=== PATIENT | female | born 1930 | race Caucasian/White ===

== ENCOUNTER → 2016-09-20 | Outpatient (CLI) | payer OTHER, BC ==
[~2016-09-20] VITALS: Ht 162.6 cm; Wt 95.0 kg
[~2016-09-20] MED LIST: ASPIR 8181 M1 PO; CARBAMAZEPINE100 M1 PO; CENTRUM SILVER1 EAC4 PO; COQ-10100 MG PO; GLIPIZIDE ER5 MG PO; HYDROCHLOROTHIA25 M2 PO; LISINOPRIL5 MG PO; LOPRESSOR50 PO; LUTEIN20 MG PO; MIRALAX17 GM PO; MOBIC7.5 MG PO; TRAMADOL 50 MG50 MG PO
--- NOTE | ~2016-09-20 | HPC ---
[facility] [place] [address] PAIN MANAGEMENT CONSULTATION Name: DOMINIQUE DENNIS Room #: REG ANA Richardson#: [id number] Admission: 09/20/16 Attend Phys: Nikolay Morales DO Discharge: Date of : 29 Report #: [id number] THIS REPORT FOR: //name// CC: Brittni Morales HISTORY OF PRESENT ILLNESS: The patient is very pleasant 86-year-old female seen in consultation at the request of Dr. Crow for evaluation of pain low back, radiating into the right leg. The patient notes she had fallen in April, falling backward, striking her low back, tail bone. She developed significant pain in low back, radiating to the right leg within about 24 hours. She was found to have blood clots in her leg, was placed on Xarelto though she has been off of this now for greater than a week. Pain has radiated into the right leg. She states it is exacerbated with any and all movements, sitting, walking or lying. She states "I can find no comfortable position." She has subjective weakness and paresthesia in the right leg. Fortunately, she denied saddle anesthesia or bowel or bladder continence. Notes pain, rates anywhere from 8-10 on a 0-10 visual analog scale; describes intermittent periodic, aching, gnawing pain. REVIEW OF SYSTEMS: Complete review of systems attached to chart was gone over with the patient. She is , seen in the company of her who is supportive as well as their daughter who is frequently present when I see her , Mr. Dennis who is also patient in the pain clinic. The patient does not smoke or drink alcohol to excess. History of non-insulin dependent diabetes, treated with glipizide, relatively poor control with hemoglobin A1c last being around 7. Hypertension, treated with metoprolol, lisinopril, and hydrochlorothiazide. Has had some headaches subsequent to the fall, sounds like she may have had a post-concussion syndrome. She was on carbamazepine for a very short, but this caused some cognitive impairment. Currently, she is taking tramadol for pain. The patient is retired. Her pain impact score is quite high, averaging about 8.2 for all indices queried. PHYSICAL EXAMINATION: VITAL SIGNS: Reveals a 5 feet 4 inches, 95 kilogram female, BMI is 35.9 kilograms per meter squared. Blood pressure is 136/76, pulse 66, respirations 20. NEUROLOGIC: Cranial nerves 2-12 are grossly intact. HEENT: Pupils equal and reactive to light and accommodation. Extraocular muscles are intact. Thyroid is modestly enlarged. HEART: Regular and rhythmical. [facility] [address] [place] [address] PAIN MANAGEMENT CONSULTATION Name: DOMINIQUE DENNIS Room #: REG ANA Richardson#: [id number] Admission: 09/20/16 Attend Phys: Nikolay Morales DO Discharge: Date of : 29 Report #: [id number] LUNGS: Generally clear. MUSCULOSKELETAL: Upper extremity strength is preserved. Does have a little thoracic kyphosis. Moderately endomorphic build. Rises from chair using armrests. Has an antalgic, almost ataxic, very short stepped gait. Lumbar flexion is limited to 50 degrees. Tender in the low back from L4 down. No discrete trigger points are noted. Lower extremity strength does show diminished strength to the right leg, the hip flexion, lower extremity extension. Strength is about 3/5 subjectively left leg, objectively little bit stronger about 4/5. Straight leg raise is positive on the right at 30 degrees. Patellar reflexes absent on the right, 1/4 on the left. Achilles reflex 1/4 and symmetric. The patient does not have any diagnostic studies available at this time, though by reports a CT scan of the pelvis at the time of the initial injury in April was unremarkable for osseous pathology, i.e. fracture. ASSESSMENT: Symptomatic lumbar radiculopathy secondary to spinal stenosis, recent fall (April) with appears to be some post-concussive headache. Incidentally noted by a family member that the patient has been showing some increasing depression and lack of "energy," some component of malaise. RECOMMENDATIONS: We will start the patient on meloxicam 7.5 mg 1 a day. Epidural injection under fluoroscopy today at L5-S1. Follow up in 1 month to evaluate efficacy. If she still has ongoing pain, may consider addition of Cymbalta 30 mg to help with pain as well as component of depression. Thank you for allowing me to participate in the patient's care, I will keep you abreast of her progress. PROCEDURE NOTE: Lumbar epidural injection under fluoroscopy. After both written and informed consent to include risk of spinal cord damage, increased pain, weakness and dural puncture, the patient was taken to the fluoroscopy suite, placed in the prone position. After sterile prep and drape, a skin wheal with lidocaine was raised. A 22-gauge epidural Tuohy needle was inserted in the midline at L5-S1 with good loss to resistance. Negative aspiration for cerebrospinal fluid or blood was noted. Then 1 mL of Omnipaque under biplanar fluoroscopy showed good spread within the epidural space. This was followed with 80 mg of triamcinolone plus 1 mL of 1.5% preservative-free Xylocaine, 0.5 mL Xylocaine was then injected to flush the needle; it was removed. The patient was monitored for an appropriate period of time and discharged in good and stable condition. By: [id number] Nikolay Morales DO /nt
[2016-09-20 14:17] VITALS: BP 136/76
== END ==
LOC: PAIN 07:35
DX: M54.16 Radiculopathy, lumbar region (principal); M48.06 Spinal stenosis, lumbar region

== ENCOUNTER → 2016-11-08 | Outpatient (CLI) | payer OTHER, BC ==
[~2016-11-08] VITALS: Ht 165.1 cm; Wt 93.9 kg
[~2016-11-08] MED LIST changes: +CYMBALTA30 MG PO
--- NOTE | ~2016-11-08 | HPC ---
[facility] [place] [address] PAIN MANAGEMENT CONSULTATION Name: DOMINIQUE SALINAS Room #: REG CHARLEYRadha Richardson#: [id number] Admission: 11/08/16 Attend Phys: Nikolay Morales DO Discharge: Date of : 29 Report #: [id number] THIS REPORT FOR: //name// CC: Mamejoanie Morales The patient is a very pleasant 86-year-old female seen in consultation 09/20/2016, diagnosed with symptomatic lumbar radiculopathy secondary to spinal stenosis, history of post-concussive headaches, component of depression and neuropathic pain. The patient was given a midline injection at L5-S1 at that time. Returns to pain clinic today noting the injection afforded incremental relief, perhaps 50%. She does, however, still has ongoing pain, right lower extremity. She is moderately tender in the calf, though no true Homans signs noted. She does have light touch allodynia and hyperpathia. Burning sensation in the right lower extremity. This is the leg that had prior had a blood clot. Since we saw her last, she had another fall. She was walking with her walker and the walker malfunctioned. She notes no significant change following the fall. She notes axial back pain is 5-6/10 and right lower extremity pain is 6/10. She notes that she uses a walker. She significantly has improvement of her functional status. She does have classic spinal stenosis, we often see with reversal of the lordotic curvature, i.e. using a walker and/or walking with a shopping cart, patients typically do a better improvement of their spinal stenosis. PHYSICAL EXAMINATION: Shows an 86-year-old female, BMI is 34.4 kilograms per meter squared. Blood pressure is 152/59, pulse 66, respirations 16. Again, little bit of hyperpathia and allodynia with right lower extremity nominal tenderness in the calf, does not appear to be typically associated with classic Homans symptoms with DVT in the calf. Positive straight leg raise on the right. Diffuse tenderness across the low back. ASSESSMENT #1: Symptomatic lumbar radiculopathy secondary to spinal stenosis, component of depression and neuropathic pain. RECOMMENDATIONS: We will start the patient on Cymbalta 30 mg 1 a day. Follow up in 4 weeks to evaluate efficacy. ASSESSMENT #2: Acute exacerbation of right lumbar radicular pain. RECOMMENDATION: Right L4-L5 transforaminal epidural injection today. We will use 60 mg of triamcinolone in consideration of the patient's diabetes. PROCEDURE: Transforaminal epidural injection under fluoroscopy, right L4-L5. PROCEDURE NOTE: After both written and informed consent was obtained including risk of spinal cord damage, infection, increased pain and paralysis, the patient agreed to proceed. The patient was taken to the fluoroscopy suite, [place] [address] PAIN MANAGEMENT CONSULTATION Name: DOMINIQUE SALINAS Room #: REG ANA Richardson#: [id number] Admission: 11/08/16 Attend Phys: Nikolay Morales DO Discharge: Date of : 29 Report #: [id number] prone position with appropriate abdominal bolstering. After sterile prep with ChloraPrep and sterile drape, a skin wheal with 1% Xylocaine was raised. A 22 gauge 4-1/2 inch epidural Tuohy needle was inserted. From an oblique approach into the posterior-superior aspect of the right L4-L5 neural foramen with continuous pressure on the glass syringe plunger for loss of resistance. Glass syringe was filled with 2 cc of 0.1 Xylocaine. The glass loss of resistance syringe was removed. A low volume extension tubing was connected, negative aspiration was accomplished for cerebrospinal fluid or blood. 1 mL of Omnipaque was injected which showed spread both within the epidural space and laterally along the nerve root. This was followed with 60 mg of triamcinolone plus 1 mL of 1.5% preservative-free Xylocaine. Needle was partially withdrawn, 0.5 mL of Xylocaine was injected to clear the needle and the needle was removed. The area was cleansed, band-aid was applied. The patient was allowed to ambulate to the recovery room, discharged in good and stable condition. By: [id number] Nikolay Morales DO /nt
[2016-11-08 09:19] VITALS: BP 152/59
== END | disposition home or self-care (01) ==
LOC: PAIN 07:12
DX: M48.06 Spinal stenosis, lumbar region (principal); F32.9 Major depressive disorder, single episode, unspecified; Z87.820 Personal history of traumatic brain injury

== ENCOUNTER → 2016-12-06 | Outpatient (CLI) | payer OTHER, BC ==
[~2016-12-06] VITALS: Ht 165.1 cm; Wt 92.1 kg
--- NOTE | ~2016-12-06 | HPC ---
[place] [address] PAIN MANAGEMENT CONSULTATION Name: DOMINIQUE SALINAS Room #: REG CHARLEYRadha Richardson#: [id number] Admission: 12/06/16 Attend Phys: Nikolay Morales DO Discharge: Date of : 29 Report #: [id number] THIS REPORT FOR: //name// CC: Mame Morales HISTORY OF PRESENT ILLNESS: The patient is a very pleasant 86-year-old female, she was initially seen in consultation, 09/20/2016, for ongoing pain, low back and right leg. She had fallen in April, striking her low back. She developed pain in the low back radiating in the right leg within the next 24 hours. She was found to have blood clots in her leg and was placed on Xarelto for a period of time. By report, a CT of the pelvis taken at the time of the original injury in April showed no osseous pathology. I did a midline epidural injection at L5-S1 at that time. The patient returned in followup, 11/08/2016. She noted that she was some better, perhaps 50% following the injection, still had right lower extremity pain. We progressed at that time to a right L4-L5 transforaminal injection. She returns to pain clinic today. While she states that the injection afforded only 25% relief, she tells me today that she actually has no pain in the right leg, but pain is primarily in the left leg at this time. It is radiating down to her toes. She describes periodic, intermittent, aching, gnawing pain exacerbated lying flat and with movement. Ice and rest seems to give her some relief. The patient further notes pain in the perirectal area, exacerbated with bowel movements and pain again low back, tailbone, left leg and difficulty with ambulation. PHYSICAL EXAMINATION: GENERAL: Shows an 86-year-old female. BMI 33.8 kilograms per meter squared. VITAL SIGNS: Stable as noted in the EMR. EXTREMITIES: Has an antalgic shuffling gait. Lower extremity strength is objectively symmetric. Modestly positive straight leg raise on the left. Right leg is actually unremarkable at this time. Patellar and Achilles reflexes are diminished, but symmetric. It is tender over the SI joints with positive Jc's test bilaterally and very tender over the L4-L5 area on clinical exam (pain midline at the level of the iliac crest). Pain is exacerbated with rotation and side bending. DISCUSSION: Discussion with the patient and her and daughter today. Again the radicular component is a little bit less at this time, certainly improved on the right side. Concerned about SI mediated pain and lumbar spondylitic-type pain along with concern for lumbar radicular symptoms, we have elected to simply get an MRI of the lumbar spine today. I suspect there is some significant lumbar spondylosis that may be exacerbating some of the axial low back pain. This really would not account for the perirectal pain. May get pain [address] [address] PAIN MANAGEMENT CONSULTATION Name: DOMINIQUE SALINAS Room #: REG ANA Richardson#: [id number] Admission: 12/06/16 Attend Phys: Nikolay Morales DO Discharge: Date of : 29 Report #: [id number] in the low back, buttocks and posterior thigh, but certainly not below the knees. The patient was discharged in good and stable condition today. Again, MRI was ordered and I will see her back after that diagnostic study. We will consider facet joint injections if indicated clinically versus a caudal injection to help with the low back lumbosacral radicular symptoms. By: [id number] Nikolay Morales DO /nt
[2016-12-06 10:36] VITALS: BP 138/87
== END | disposition home or self-care (01) ==
LOC: PAIN 06:46
DX: M47.896 Other spondylosis, lumbar region (principal); M53.3 Sacrococcygeal disorders, not elsewhere classified; Z88.8 Allergy status to other drugs, medicaments and biological substances; Z79.899 Other long term (current) drug therapy; Z79.82 Long term (current) use of aspirin

== ENCOUNTER → 2016-12-12 | Outpatient (CLI) | payer OTHER, BC ==
[~2016-12-12] MED LIST changes: +TIZANIDINE HCL 22 M1 PO
== END ==
LOC: MRI 12:05
DX: M47.896 Other spondylosis, lumbar region (principal)

== ENCOUNTER → 2016-12-13 | Outpatient (CLI) | payer OTHER, BC ==
[~2016-12-13] VITALS: Ht 165.1 cm; Wt 92.3 kg
[2016-12-13 10:48] VITALS: BP 145/58
== END | disposition home or self-care (01) ==
LOC: PAIN 06:51
DX: M47.896 Other spondylosis, lumbar region (principal); R27.0 Ataxia, unspecified; F32.89 Other specified depressive episodes; Z88.8 Allergy status to other drugs, medicaments and biological substances; Z79.82 Long term (current) use of aspirin; Z79.899 Other long term (current) drug therapy; Z98.890 Other specified postprocedural states